=== PATIENT | male | born 1960 | race Caucasian/White ===

== ENCOUNTER 2021-08-22 14:06 | Outpatient (CLI) | payer BC, SELFPAY | END 2021-08-22 14:07 | disposition home or self-care (01) | LOC: ANHAUDIO 14:08 | PROVIDERS: Referring Provider Otolaryngology; Visit Provider Otolaryngology | DX: H90.6 Mixed conductive and sensorineural hearing loss, bilateral (principal) | CPT/HCPCS: 92557; 92567 ==